=== PATIENT | male | born 1975 | race Caucasian/White ===

== ENCOUNTER 2019-02-25 11:25 | Emergency (ER) | payer MEDICARE, OTHER ==
[2019-02-25 11:31] VITALS: BP 172/88
[2019-02-25] MEDS ORDERED: LIDOCAINE 2% VISCOUS SOLN 20 ML UDCUP PO ONE (11:36)
[2019-02-25] MEDS ORDERED: HYDROCODONE/ACETAMINOPHEN 5-325 MG (6 TAB/ER DISP) PO PRN (12:08)
--- NOTE | 2019-02-25 12:13 | ER Document Report ---
HPI - HPI Time Seen by Provider: 02/25/19 11:57 Pain Level: 4 Notes: Patient is a 43-year-old male with history of hypertension who presents complaining of dental pain to #17 for the past several days. Patient states that he was at his dentist office last week when they try to get the wisdom tooth out and worked on it for 2 hours. Patient states that they left the root in there and had a schedule appointment with oral surgery. Patient states that he is currently still on amoxicillin. His dentist is out of the country for 2 weeks and he cannot get anything to help with the pain that he is experience in currently and his oral surgeon's office is closed today. Patient did not know what else to do and had extinguishes options so he came here. The Motrin 800s have been doing minimal relief for him. He has not noticed any swelling or drainage. He is going to call the oral surgeon tomorrow. Denies any headache, fever, neck pain, drooling, hoarseness, URI, sore throat, chest pain, palpitations, syncope, cough, shortness of breath, wheeze, dyspnea, abdominal pain, nausea/vomiting/diarrhea, urinary retention, dysuria, hematuria, or rash. - ROS Systems Reviewed and Negative: Yes All other systems reviewed and negative Past Medical History - Social History Smoking Status: Unknown if Ever Smoked Family History: Reviewed & Not Pertinent Vertical Provider Document - CONSTITUTIONAL Agree With Documented VS: Yes Notes: PHYSICAL EXAMINATION: GENERAL: Well-appearing, well-nourished and in no acute distress. HEAD: Atraumatic, normocephalic. EYES: Pupils equal round and reactive to light, extraocular movements intact, sclera anicteric, conjunctiva are normal. ENT: Nares patent and without discharge. oropharynx clear without exudates. No tonsilar hypertrophy or erythema. Moist mucous membranes. No sinus tenderness. Uvula midline. No palatine shift. No tongue protrusion. No respiratory compromise. Mouth: There is a remaining root in place #17. No obvious abscess or discharge noted. No facial swelling. + tenderness to tooth #17. NECK: Normal range of motion, supple without lymphadenopathy. No rigidity/meningismus. LUNGS: Breath sounds clear to auscultation bilaterally and equal. No wheezes rales or rhonchi. HEART: Regular rate and rhythm without murmurs, rubs, gallops. NEUROLOGICAL: Cranial nerves grossly intact. Normal speech, normal gait. Normal sensory, motor exams PSYCH: Normal mood, normal affect. SKIN: Warm, Dry, normal turgor, no rashes or lesions noted. - INFECTION CONTROL TRAVEL OUTSIDE OF THE [place] IN LAST 30 DAYS: No Course - Re-evaluation Re-evalutation: 02/25/19 12:11 Patient is an afebrile, well-hydrated, 43-year-old male who presents to the ED with dental pain, suspect nerve root etiology versus infection. Vitals are acceptable. PE is otherwise unremarkable. No I&D, labs, or imaging warranted at this time based on H&P. Viscous lidocaine dispensed today. Patient is already on amoxicillin. I will send him home with a [employer] dispense pack. Reviewed with patient that I cannot send him home with more pain medicines and was provided in the dispense pack. I do believe the patient's pain and story as he is already on antibiotics and has a scheduled follow-up with an oral surgeon. Patient aware that he will not be getting another narcotic prescription. Low suspicion for any meningitis, sepsis, peritonsillar/pharyngeal abscess, respiratory compromise, Padilla's, temporal arteritis, or other emergent systemic condition at this time. Patient is aware this condition can change from initial presentation and he needs to monitor symptoms closely. Conservative measures otherwise for symptoms. Call to schedule an appointment with your surgeon for further evaluation and management. Recheck with your PCM this week as well. Return to the ED with any worsening/concerning symptoms otherwise as reviewed in discharge. Patient is in agreement. - Vital Signs Vital signs: Temp Pulse Resp BP Pulse Ox 97.7 F 73 16 172/88 H 92 02/25/19 11:30 02/25/19 11:30 02/25/19 11:30 02/25/19 11:30 02/25/19 11:30 Discharge - Discharge Clinical Impression: Pain, dental Condition: Stable Disposition: HOME, SELF-CARE Instructions: Toothache ([facility]), Oral Narcotic Medication ([facility]) Additional Instructions: [place] and floss twice daily Maintain fluid intake Take antibiotics as directed Mouthwash, salt water gargles, peroxide rinse as needed Tylenol/ibuprofen as needed Recheck with PCM this week Call your oral surgeon tomorrow Return to the ED with any worsening symptoms and/or development of fever, headache, facial swelling, swelling of lips/tongue/throat, trouble swallowing, drooling, hoarseness, neck pain/stiffness, chest pain, palpitations, syncope, shortness of breath, trouble breathing, abdominal pain, n/v/d, numbness/tingling, or other worsening symptoms that are concerning to you. Forms: Elevated Blood Pressure Referrals: ARTHUR HERNANDEZ MD [ACTIVE STAFF] - Follow up as needed
== END 2019-02-25 12:30 | disposition home or self-care (01) ==
LOC: ER 11:25
DX: K08.9 Disorder of teeth and supporting structures, unspecified (principal)
CPT/HCPCS: J3490; A9270